=== PATIENT | male | born 1945 | race Caucasian/White ===

== ENCOUNTER 2022-10-05 11:38 | Outpatient (CLI) | payer MEDICARE, SELFPAY ==
--- NOTE | 2022-10-05 11:54 | USCV_ITS ---
Derek Aguirre Age: 77 Gender: M : 1945 Exam Date: 10/05/2022 12:11 Ordering Phys: Nick Macias MD Technologist: Exam Location: [facility] [place] Indication: murmur BP: 139 / 77 HR: 56 Rhythm: Sinus Technical Quality: Adequate MEASUREMENTS (Male / Female) Normal Values 2D ECHO LV Diastolic Diameter PLAX 4.7 cm 4.2 - 5.9 / 3.9 - 5.3 cm LV Systolic Diameter PLAX 2.9 cm IVS Diastolic Thickness 1.1 cm 0.6 - 1.0 / 0.6 - 0.9 cm IVS Systolic Thickness 1.5 cm LVPW Diastolic Thickness 1.3 cm 0.6 - 1.0 / 0.6 - 0.9 cm LVPW Systolic Thickness 1.3 cm LVOT Diameter 2.1 cm LV Ejection Fraction 2D Teich 69.4 % LA Diameter 4.6 cm Aorta at Sinotubular Diameter 3.2 cm IVC Diameter 2.3 cm M-MODE Aortic Annulus Diameter 3.7 cm LA Ao Ratio MM 1.4 MV E Point Septal Separation 1.0 cm DOPPLER AV Peak Velocity 210.0 cm/s LVOT Peak Velocity 110.0 cm/s AV Area Cont Eq vti 1.7 cm squared AV Area Cont Eq pk 1.7 cm squared MV Area PHT 5.0 cm squared Mitral E to A Ratio 1.3 MV E' Velocity 77.5 cm/s Mitral E to MV E' Ratio 12.9 Mitral E to LV E' Lateral Ratio 10.8 Mitral E to LV E' Septal Ratio 16.2 TR Peak Velocity 272.7 cm/s TR Peak Gradient 29.7 mmHg TV Peak E Velocity 110.0 cm/s Right Atrial Pressure 3.0 mmHg Pulmonary Artery Systolic Pressu 32.7 mmHg RV Acceleration Time 0.2 s FINDINGS Left Ventricle Left ventricle is normal in size. LV systolic function is normal with EF of 55 to 60%. No regional wall motion abnormalities are seen. Right Ventricle Normal in size and function Right Atrium Normal in size Left Atrium Normal in size Mitral Valve Structurally normal mitral valve. Moderate mitral regurgitation. Aortic Valve Structurally normal aortic valve. Mild aortic regurgitation. No significant stenosis. Tricuspid Valve Mild tricuspid regurgitation. Pulmonary artery systolic pressure is normal. Pulmonic Valve Not well visualized Pericardium Normal Aorta Normal in size IVC Appears to be normal CONCLUSIONS LV systolic function is normal with EF 55 to 60%. Moderate mitral regurgitation Mild aortic regurgitation Mild tricuspid regurgitation No comparison studies are available. Rohit Heller MD (Electronically Signed) Final Date: 09 October 2022 17:06 S
== END 2022-10-05 11:39 | disposition home or self-care (01) ==
LOC: RAD 11:45
PROVIDERS: PCP Nurse Practitioner Family; Visit Provider Emergency Medicine
DX: I34.0 Nonrheumatic mitral (valve) insufficiency (principal); I35.1 Nonrheumatic aortic (valve) insufficiency; I07.1 Rheumatic tricuspid insufficiency
CPT/HCPCS: 93306